=== PATIENT | male | born 1945 | race Caucasian/White ===

== ENCOUNTER 2016-07-29 13:32 | Emergency (ER) | payer MEDICARE ==
[2016-07-29 16:29] LABS: Hematocrit 45 % (42-52); Hemoglobin 15.5 g/dl (14.0-18.0); Mean Corpuscular HGB Conc 35 g/dl (31-36); Mean Corpuscular Hemoglobin 34 pg (27-31); Mean Corpuscular Volume 98 fL (80-94); Mean Platelet Volume 11 um3 (7.4-10.4); Red Blood Count 4.57 10^6/ul (4.0-5.4); Red Cell Distribution Width 12 % (10.5-15); White Blood Count 5.9 10^3/ul (3.5-10.8)
[2016-07-29 16:30] LABS: Comments Flag Yes
[2016-07-29 16:31] LABS: Add Diff/Slide Review? Slide Review Added; Troponin I 0.01 ng/mL (<0.04)
[2016-07-29 16:52] LABS: Albumin 4.1 g/dL (3.2-5.2); BUN/Creatinine Ratio 29.7 (8-20); Calcium 9.8 mg/dL (8.6-10.3); EGFR African American 105.9 (>60); EGFR Non-African American 82.4 (>60); Globulin 3.6 g/dL (2-4); Potassium 4.5 mmol/L (3.5-5.0); Total Bilirubin 1.2 mg/dL (0.2-1.0); Total Protein 7.7 g/dL (6.4-8.9)
[2016-07-29 17:03] LABS: Stomatocytes 2+
[2016-07-29 17:17] VITALS: BP 174/83
--- NOTE | 2016-08-01 14:47 | ED ---
Antonio Dubon Benjamin, scribed for Wilfredo Fagan MD on 07/29/16 at 1548 . Hypertension - HPI Summary HPI Summary: 70yo male with Hx of HTN presents to ED today for high BP readings on the drug store this afternoon. Pt says his systolic pressure was around 250. Pt reports lightheadedness, but denies VAZQUEZ or any other symptoms. - History of Current Complaint Chief Complaint: EDHypertension Stated Complaint: HIGH BP Time Seen by Provider: 07/29/16 15:21 Hx Obtained From: Patient Onset/Duration: Started Hours Ago Timing: Constant Aggravating Factor(s): Nothing Alleviating Factor(s): Nothing Associated Signs & Symptoms: Other: - lightheadedness - Risk Factors Cardiac Risk Factors: Hypertension - Allergies/Home Medications Allergies/Adverse Reactions: Allergies Allergy/AdvReac Type Severity Reaction Status Date / Time Diphenhydramine Allergy Rash Verified 07/29/16 13:50 [From Benadryl] PMH/Surg Hx/FS Hx/Imm Hx Endocrine/Hematology History: Reports: Hx Diabetes - boderline - controlled by diet Cardiovascular History: Reports: Hx Hypertension - Surgical History Surgery Procedure, Year, and Place: Hemerrhoid. Repaired Fx Acetabulum. Shoulder Dislocation, screw. Cataracts. Tendon Transplant RIGHT Thumb Infectious Disease History: No Infectious Disease History: Denies: Traveled Outside the [place] in Last 30 Days - Family History Known Family History: Positive: None Negative: Cardiac Disease, Hypertension, Diabetes - Social History Occupation: Employed Full-time Lives: Alone Alcohol Use: Daily Alcohol Amount: 2-3 Substance Use Type: Reports: None Smoking Status (MU): Never Smoked Tobacco Review of Systems Positive: Other - HTN Eyes: Negative ENT: Negative Cardiovascular: Negative Respiratory: Negative Gastrointestinal: Negative Genitourinary: Negative Musculoskeletal: Negative Skin: Negative Neurological: Other - lightheadedness Psychological: Normal All Other Systems Reviewed And Are Negative: Yes Physical Exam Triage Information Reviewed: Yes Vital Signs On Initial Exam: Initial Vitals Temp Pulse Resp BP Pulse Ox 99.2 F 88 18 208/108 97 07/29/16 13:50 07/29/16 13:50 07/29/16 13:50 07/29/16 13:50 07/29/16 13:50 Vital Signs Reviewed: Yes Appearance: Positive: Well-Appearing, No Pain Distress, Well-Nourished Skin: Positive: Warm, Skin Color Reflects Adequate Perfusion, Dry Head/Face: Positive: Normal Head/Face Inspection Eyes: Positive: EOMI, NAYELI ENT: Positive: Normal ENT inspection Neck: Positive: Supple, Nontender Respiratory/Lung Sounds: Positive: Clear to Auscultation, Breath Sounds Present Cardiovascular: Positive: RRR, Pulses are Symmetrical in both Upper and Lower Extremities Abdomen Description: Positive: Nontender, No Organomegaly Bowel Sounds: Positive: Present Musculoskeletal: Positive: Strength/ROM Intact Neurological: Positive: Sensory/Motor Intact, Alert, Oriented to Person Place, Time, CN Intact II-III Psychiatric: Positive: Normal, Affect/Mood Appropriate - [place] Coma Scale Coma Scale Total: 15 Diagnostics - Vital Signs Vital Signs Temp Pulse Resp BP Pulse Ox 07/29/16 15:30 17 193/91 07/29/16 15:28 10 202/94 07/29/16 14:50 98.2 F 78 18 182/100 95 07/29/16 13:50 99.2 F 88 18 208/108 97 - Laboratory Lab Results: Lab Results 07/29/16 07/29/16 Range/Units 16:00 16:00 WBC 5.9 (3.5-10.8) 10^3/ul RBC 4.57 (4.0-5.4) 10^6/ul Hgb 15.5 (14.0-18.0) g/dl Hct 45 (42-52) % MCV 98 H (80-94) fL MCH 34 H (27-31) pg MCHC 35 (31-36) g/dl RDW 12 (10.5-15) % Plt Count 97 L (150-450) 10^3/ul MPV 11 H (7.4-10.4) um3 Neut % (Auto) 76.1 (38-83) % Lymph % (Auto) 13.7 L (25-47) % [place] % (Auto) 9.5 H (1-9) % Eos % (Auto) 0.2 (0-6) % Baso % (Auto) 0.5 (0-2) % Absolute Neuts (auto) 4.5 (1.5-7.7) 10^3/ul Absolute Lymphs (auto) 0.8 L (1.0-4.8) 10^3/ul Absolute Monos (auto) 0.6 (0-0.8) 10^3/ul Absolute Eos (auto) 0 (0-0.6) 10^3/ul Absolute Basos (auto) 0 (0-0.2) 10^3/ul Absolute Nucleated RBC 0 10^3/ul Nucleated RBC % 0.1 Normal RBC Morphology Not Reportable Stomatocytes 2+ Sodium 132 L (133-145) mmol/L Potassium 4.5 (3.5-5.0) mmol/L Chloride 94 L (101-111) mmol/L Carbon Dioxide 29 (22-32) mmol/L Anion Gap 9 (2-11) mmol/L BUN 27 H (6-24) mg/dL Creatinine 0.91 (0.67-1.17) mg/dL Est GFR ( Amer) 105.9 (>60) Est GFR (Non-Af Amer) 82.4 (>60) BUN/Creatinine Ratio 29.7 H (8-20) Glucose 328 H (70-100) mg/dL Calcium 9.8 (8.6-10.3) mg/dL Total Bilirubin 1.20 H (0.2-1.0) mg/dL AST 49 H (13-39) U/L ALT 47 (7-52) U/L Alkaline Phosphatase 52 (34-104) U/L Troponin I 0.01 (<0.04) ng/mL Total Protein 7.7 (6.4-8.9) g/dL Albumin 4.1 (3.2-5.2) g/dL Globulin 3.6 (2-4) g/dL Albumin/Globulin Ratio 1.1 (1-3) Result Diagrams: 07/29/16 16:00 07/29/16 16:00 Lab Statement: Any lab studies that have been ordered have been reviewed, and results considered in the medical decision making process. - EKG 1358 Cardiac Rate: NL - 87bpm EKG Rhythm: Sinus Rhythm Hypertension Course/Dx - Course Course Of Treatment: Mr. Yuen was observed on the monitor here while we checked for end-organ damage. His W/U was OK and his BP was consistently high and he was very anxious about it so I increaased his atenolol slightly and encouraged him to check his pressures frequently and [facility] - Diagnoses Provider Diagnoses: HTN (hypertension) Discharge - Discharge Plan Condition: Stable Disposition: HOME Patient Education Materials: Hypertension (ED) Referrals: Carla Suarez [Primary Care Provider] - Additional Instructions: Please increase your Atenolol to 50 mgs twice a day from 25 mgs. The documentation as recorded by the Antonio vaughan Benjamin accurately reflects the service I personally performed and the decisions made by me, Wilfredo Fagan MD.
== END 2016-07-29 17:34 | disposition home or self-care (01) ==
LOC: ED 13:32
DX: I10 Essential (primary) hypertension (principal); R42 Dizziness and giddiness
CPT/HCPCS: 36415; 80053; 84484; 85025; 93005; 99282

== ENCOUNTER 2017-03-25 20:51 | Emergency (ER) | payer SELFPAY ==
[2017-03-25 20:57] VITALS: BP 199/95
[2017-03-25] MEDS ORDERED: oxyCODONE/Acetamin 5/325 MG* TAB PO ONE (21:11)
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
== END 2017-03-25 22:32 | disposition home or self-care (01) ==
LOC: ED 20:51
DX: S50.12XA Contusion of left forearm, initial encounter (principal); S00.81XA Abrasion of other part of head, initial encounter; S40.812A Abrasion of left upper arm, initial encounter; S60.512A Abrasion of left hand, initial encounter; S80.212A Abrasion, left knee, initial encounter; S81.011A Laceration without foreign body, right knee, initial encounter; V43.52XA Car driver injured in collision with other type car in traffic accident, initial encounter; Y93.89 Activity, other specified; Y92.410 Unspecified street and highway as the place of occurrence of the external cause; R73.03 Prediabetes; I10 Essential (primary) hypertension
CPT/HCPCS: 99282; A9270-GY

== ENCOUNTER 2022-03-11 10:14 | Inpatient (IN) ==
[2022-03-11 10:51] LABS: PCO2 Arterial 62 mmHg (35-45); PO2 Arterial 66 mmHg (80-100)
[2022-03-11 11:04] LABS: ABS Lymphocytes 0.5 10^3/ul (1.0-4.8); ABS Monocytes 0.7 10^3/ul (0-0.8); Hematocrit 43 % (42-52); Hemoglobin 13.2 g/dL (14.0-18.0); Lymphocyte % 4.1 %; Mean Corpuscular HGB Conc 31 g/dL (31-36); Mean Corpuscular Hemoglobin 35 pg (27-31); Mean Corpuscular Volume 114 fL (80-94); Mean Platelet Volume 9.6 fL (7.4-10.4); Nucleated Red Blood Cells % 0.2; Platelet Count 223 10^3/uL (150-450); Red Blood Count 3.79 10^6 /uL (4.18-5.48); Red Cell Distribution Width 14 % (10-15); White Blood Count 11.1 10^3/uL (3.5-10.8)
[2022-03-11] MEDS ORDERED: Albuterol 2.5mg/3 ml (0.083%) NEB.SOLN INH ONE ×3 (11:09→13:57)
[2022-03-11 11:15] LABS: High Sens Troponin Baseline 15 pg/mL (<20)
[2022-03-11 11:28] LABS: ALT 165 U/L (7-52); Albumin 4.4 g/dL (3.2-5.2); Albumin/Globulin Ratio 1.1 (1-3); Alkaline Phosphatase 94 U/L (35-149); Blood Urea Nitrogen 67 mg/dL (6-24); CO2 Carbon Dioxide 25 mmol/L (22-32); Calcium 9.4 mg/dL (8.6-10.3); Chloride 100 mmol/L (101-111); Globulin 3.9 g/dL (2-4); Glucose 231 mg/dL (70-100); Sodium 137 mmol/L (135-145); Total Protein 8.3 g/dL (6.4-8.9); eGFR CKD-EPI 20.1 (>60)
[2022-03-11 11:33] LABS: Anion Gap 12 mmol/L (2-11)
[2022-03-11] MEDS ORDERED: Furosemide 40 mg/4 ml IV VIAL IV ONE (12:26)
[2022-03-11 12:50] LABS: High Sensitivity Troponin 1 Hr 16 pg/mL (<20)
[2022-03-11 13:55] LABS: PCO2 Arterial 53 mmHg (35-45); PO2 Arterial 72 mmHg (80-100)
[2022-03-11] MEDS ORDERED: Enoxaparin 30 MG/0.3 ML SYR SUBCUT SCH (14:00)
[2022-03-11 15:52] LABS: ABS Lymphocytes 0.4 10^3/ul (1.0-4.8); ABS Monocytes 0.6 10^3/ul (0-0.8); ABS Neutrophils 7.2 10^3/ul (1.5-7.7); Hematocrit 38 % (42-52); Hemoglobin 11.8 g/dL (14.0-18.0); Lymphocyte % 4.9 %; Mean Corpuscular HGB Conc 32 g/dL (31-36); Mean Corpuscular Hemoglobin 36 pg (27-31); Mean Corpuscular Volume 113 fL (80-94); Mean Platelet Volume 9.5 fL (7.4-10.4); Nucleated Red Blood Cells % 0.3; Platelet Count 152 10^3/uL (150-450); Red Cell Distribution Width 13 % (10-15); White Blood Count 8.2 10^3/uL (3.5-10.8)
[2022-03-11 16:26] LABS: Calcium 6.9 mg/dL (8.6-10.3); eGFR CKD-EPI 23.9 (>60)
[2022-03-11 16:32] LABS: Potassium 5.3 mmol/L (3.5-5.0)
[2022-03-11] MEDS ORDERED: Calcium Gluconate 2 GM in NS 0.9% 100 ml BAG 100 ML IV ONE (16:38)
[2022-03-11] MEDS ORDERED: Dextrose 50% Syringe 50 ml 25 GM/50 ML SYRINGE IV PUSH PRN (17:25)
[2022-03-11] MEDS ORDERED: Enoxaparin 80 MG/0.8 ML SYR SUBCUT SCH (19:30)
[2022-03-12 05:13] LABS: ABS Lymphocytes 0.5 10^3/ul (1.0-4.8); ABS Monocytes 0.7 10^3/ul (0-0.8); ABS Neutrophils 5.9 10^3/ul (1.5-7.7); Hematocrit 28 % (42-52); Lymphocyte % 7.4 %; Mean Corpuscular HGB Conc 32 g/dL (31-36); Mean Corpuscular Hemoglobin 36 pg (27-31); Mean Corpuscular Volume 112 fL (80-94); Mean Platelet Volume 9.4 fL (7.4-10.4); Nucleated Red Blood Cells % 0.2; Platelet Count 125 10^3/uL (150-450); Red Blood Count 2.53 10^6 /uL (4.18-5.48); Red Cell Distribution Width 13 % (10-15); White Blood Count 7.1 10^3/uL (3.5-10.8)
[2022-03-12] MEDS ORDERED: Furosemide 40 mg/4 ml IV VIAL IV SLOW PU ONE (05:25)
[2022-03-12 05:45] LABS: Albumin 3.5 g/dL (3.2-5.2); Albumin/Globulin Ratio 1.1 (1-3); Calcium 8.6 mg/dL (8.6-10.3); Globulin 3.1 g/dL (2-4); Magnesium 2.2 mg/dL (1.9-2.7); Phosphorus 5.8 mg/dL (2.5-5.0); Total Protein 6.6 g/dL (6.4-8.9); eGFR CKD-EPI 16.2 (>60)
[2022-03-12 05:49] LABS: Potassium 5.7 mmol/L (3.5-5.0)
[2022-03-12 05:59] LABS: TSH Ultra Thyroid Stim Horm 0.96 mcIU/mL (0.34-5.60)
[2022-03-12] MEDS ORDERED: SODIUM ZIRCONIUM CYCLOSILICATE 10 GM PACKET PO ONE (05:59)
[2022-03-12 07:18] LABS: Urine Appearance Clear; Urine Bilirubin Negative (Negative); Urine Blood Negative (Negative); Urine Color Yellow; Urine Glucose Negative (Negative); Urine Ketones Negative (Negative); Urine Nitrite Negative (Negative); Urine Protein 2+ (100 mg/dL) (Negative); Urine Urobilinogen 0.2 (Negative) (Negative)
[2022-03-12 07:24] LABS: Urine Bacteria Absent (Absent); Urine Red Blood Cell Trace(0-2/hpf) (Absent); Urine Squamous Epithelial Cell Present (Absent); Urine White Blood Cell Trace(0-5/hpf) (Absent)
[2022-03-12 09:24] LABS: PCO2 Arterial 43 mmHg (35-45); PO2 Arterial 82 mmHg (80-100)
[2022-03-12] MEDS: SODIUM ZIRCONIUM CYCLOSILICATE 10 GM PACKET PO SCH ×2 (10:57→22:20)
[2022-03-12 11:24] LABS: Albumin 3.7 g/dL (3.2-5.2); Albumin/Globulin Ratio 1.2 (1-3); Calcium 8.9 mg/dL (8.6-10.3); Globulin 3.2 g/dL (2-4); Total Bilirubin 1.1 mg/dL (0.2-1.0); Total Protein 6.9 g/dL (6.4-8.9); eGFR CKD-EPI 14.9 (>60)
[2022-03-12 11:26] LABS: Potassium 5.2 mmol/L (3.5-5.0)
[2022-03-12 13:10] LABS: Ferritin 35.9 ng/mL (24-336)
[2022-03-12] MEDS: cefTRIAXone 1 gm/50 mL D5W 1 GM/50 ML BAG IV SCH (13:21)
[2022-03-12] MEDS: DOXYcycline 100 MG in NS 0.9% 250 ml 250 ML IVPB SCH ×2 (14:15→18:13)
[2022-03-12] MEDS: SPIRIVA Respimat (tiotropium) 2.5 mcg/inh Inhaler INH SCH (17:58)
[2022-03-12] MEDS ORDERED: NS 0.9% 1000 ml BAG 1,000 ML IV SCH (18:00)
[2022-03-12] MEDS: Pantoprazole VIAL 40 MG VIAL IV SCH (22:20)
[2022-03-13 06:16] LABS: ABS Lymphocytes 0.3 10^3/ul (1.0-4.8); ABS Monocytes 0.3 10^3/ul (0-0.8); ABS Neutrophils 4.9 10^3/ul (1.5-7.7); Hematocrit 34 % (42-52); Hemoglobin 11.1 g/dL (14.0-18.0); Lymphocyte % 5.3 %; Mean Corpuscular HGB Conc 32 g/dL (31-36); Mean Corpuscular Hemoglobin 36 pg (27-31); Mean Corpuscular Volume 112 fL (80-94); Mean Platelet Volume 9.2 fL (7.4-10.4); Nucleated Red Blood Cells % 0.2; Platelet Count 124 10^3/uL (150-450); Red Blood Count 3.05 10^6 /uL (4.18-5.48); Red Cell Distribution Width 13 % (10-15); White Blood Count 5.5 10^3/uL (3.5-10.8)
[2022-03-13] MEDS: DOXYcycline 100 MG in NS 0.9% 250 ml 250 ML IVPB SCH ×2 (06:20→18:07)
[2022-03-13 06:38] LABS: Calcium 8.2 mg/dL (8.6-10.3); Magnesium 2.2 mg/dL (1.9-2.7); Potassium 5.3 mmol/L (3.5-5.0); eGFR CKD-EPI 13.8 (>60)
[2022-03-13] MEDS: Pantoprazole VIAL 40 MG VIAL IV SCH ×2 (08:02→21:46)
[2022-03-13] MEDS: SODIUM ZIRCONIUM CYCLOSILICATE 10 GM PACKET PO SCH (08:02)
[2022-03-13] MEDS: SPIRIVA Respimat (tiotropium) 2.5 mcg/inh Inhaler INH SCH (08:06)
[2022-03-13] MEDS ORDERED: Lactated Ringers 1000 ml BAG 1,000 ML IV ONE (08:51)
[2022-03-13] MEDS ORDERED: Bumetanide IV 0.25 MG/ML 4 ml VIAL (1 mg) SLOW PUSH ONE (10:48)
[2022-03-13] MEDS ORDERED: Bumetanide IV 0.25 MG/ML 4 ml VIAL (1 mg) ONE (11:56)
[2022-03-13 12:54] LABS: Urine Creatinine Concentration 90.49 mg/dL; Urine Potassium Concentration 29.1 mmol/L
[2022-03-13] MEDS: cefTRIAXone 1 gm/50 mL D5W 1 GM/50 ML BAG IV SCH (14:30)
[2022-03-13] MEDS ORDERED: Bumetanide IV 10 MG in Premix IV 0 ML IV SCH (15:00)
[2022-03-13] MEDS ORDERED: Chlorothiazide IV 500 MG in NS 0.9% 50 ML 50 ML IV ONE (15:30)
[2022-03-13 17:23] LABS: ABS Lymphocytes 0.1 10^3/ul (1.0-4.8); ABS Monocytes 0.2 10^3/ul (0-0.8); ABS Neutrophils 6.6 10^3/ul (1.5-7.7); Hematocrit 38 % (42-52); Hemoglobin 11.8 g/dL (14.0-18.0); Mean Corpuscular HGB Conc 31 g/dL (31-36); Mean Corpuscular Hemoglobin 35 pg (27-31); Mean Corpuscular Volume 112 fL (80-94); Mean Platelet Volume 9.5 fL (7.4-10.4); Nucleated Red Blood Cells % 0.1; Platelet Count 146 10^3/uL (150-450); Red Blood Count 3.37 10^6 /uL (4.18-5.48); Red Cell Distribution Width 13 % (10-15)
[2022-03-13 17:44] LABS: Calcium 8.1 mg/dL (8.6-10.3); Potassium 4.3 mmol/L (3.5-5.0); eGFR CKD-EPI 13.7 (>60)
[2022-03-13] MEDS ORDERED: Insulin GLARGINE 100 un/ml 10 ml VIAL SUBCUT SCH (21:00)
[2022-03-13] MEDS: Bumetanide IV 10 MG in Premix IV 0 ML IV SCH (21:38)
[2022-03-14 00:52] LABS: Calcium 7.9 mg/dL (8.6-10.3); Potassium 4.1 mmol/L (3.5-5.0); eGFR CKD-EPI 12.3 (>60)
[2022-03-14 01:21] LABS: Hepatitis B Surface Antigen Nonreactive (Nonreactive)
[2022-03-14 01:26] LABS: Hepatitis B Core IgM Nonreactive (Nonreactive)
[2022-03-14 01:38] LABS: Hepatitis B Surface Ab Not Immune (Immune)
[2022-03-14 01:58] LABS: Hepatitis C Antibody Reactive (Negative)
[2022-03-14 05:28] LABS: ABS Lymphocytes 0.4 10^3/ul (1.0-4.8); ABS Monocytes 0.7 10^3/ul (0-0.8); ABS Neutrophils 5.2 10^3/ul (1.5-7.7); Eosinophil % 0.1 %; Hematocrit 34 % (42-52); Hemoglobin 10.8 g/dL (14.0-18.0); Lymphocyte % 6.4 %; Mean Corpuscular HGB Conc 32 g/dL (31-36); Mean Corpuscular Hemoglobin 36 pg (27-31); Mean Corpuscular Volume 112 fL (80-94); Nucleated Red Blood Cells % 0.2; Platelet Count 120 10^3/uL (150-450); Red Blood Count 3.03 10^6 /uL (4.18-5.48); Red Cell Distribution Width 13 % (10-15); White Blood Count 6.3 10^3/uL (3.5-10.8)
[2022-03-14 06:18] LABS: Calcium 7.9 mg/dL (8.6-10.3); Magnesium 2.2 mg/dL (1.9-2.7); Potassium 4.6 mmol/L (3.5-5.0); eGFR CKD-EPI 11.9 (>60)
[2022-03-14] MEDS: Bumetanide IV 10 MG in Premix IV 0 ML IV SCH ×4 (06:28→19:46)
[2022-03-14] MEDS: DOXYcycline 100 MG in NS 0.9% 250 ml 250 ML IVPB SCH ×2 (06:29→17:16)
[2022-03-14] MEDS: Pantoprazole VIAL 40 MG VIAL IV SCH ×2 (08:03→21:41)
[2022-03-14] MEDS ORDERED: Chlorothiazide IV 500 mg VIAL IV ONE (08:30)
[2022-03-14] MEDS ORDERED: Chlorothiazide IV 500 MG in NS 0.9% 50 ML 50 ML IV ONE (09:00)
[2022-03-14] MEDS ORDERED: cefTRIAXone 1 GM Q24H (ADVAN) IVPB SCH (12:45)
[2022-03-14 13:00] LABS: Calcium 7.9 mg/dL (8.6-10.3); Potassium 4.3 mmol/L (3.5-5.0); eGFR CKD-EPI 12.4 (>60)
[2022-03-14] MEDS: Tiotropium Brom/Olodaterol MDI INH SCH (13:38)
[2022-03-14] MEDS: SPIRIVA Respimat (tiotropium) 2.5 mcg/inh Inhaler INH SCH ×2 (13:40→13:55)
[2022-03-14] MEDS ORDERED: Dextrose 50% Syringe 50 ml 25 GM/50 ML SYRINGE IV PUSH PRN (18:01)
[2022-03-14 18:15] LABS: Calcium 7.8 mg/dL (8.6-10.3); Magnesium 2.1 mg/dL (1.9-2.7); Potassium 4.7 mmol/L (3.5-5.0); eGFR CKD-EPI 12.3 (>60)
[2022-03-14] MEDS ORDERED: Insulin GLARGINE 100 un/ml 10 ml VIAL SUBCUT SCH (21:00)
[2022-03-15 04:34] LABS: ABS Lymphocytes 0.3 10^3/ul (1.0-4.8); ABS Monocytes 0.7 10^3/ul (0-0.8); ABS Neutrophils 5.4 10^3/ul (1.5-7.7); Hematocrit 37 % (42-52); Lymphocyte % 4.5 %; Mean Corpuscular HGB Conc 33 g/dL (31-36); Mean Corpuscular Hemoglobin 36 pg (27-31); Mean Corpuscular Volume 110 fL (80-94); Mean Platelet Volume 9.9 fL (7.4-10.4); Nucleated Red Blood Cells % 0.3; Platelet Count 122 10^3/uL (150-450); Red Blood Count 3.33 10^6 /uL (4.18-5.48); Red Cell Distribution Width 13 % (10-15); White Blood Count 6.3 10^3/uL (3.5-10.8)
[2022-03-15 05:03] LABS: Potassium 4.3 mmol/L (3.5-5.0); eGFR CKD-EPI 13.4 (>60)
[2022-03-15] MEDS: DOXYcycline 100 MG in NS 0.9% 250 ml 250 ML IVPB SCH (05:12)
[2022-03-15] MEDS: Bumetanide IV 10 MG in Premix IV 0 ML IV SCH ×4 (06:35→21:44)
[2022-03-15] MEDS: SPIRIVA Respimat (tiotropium) 2.5 mcg/inh Inhaler INH SCH (07:42)
[2022-03-15] MEDS ORDERED: Bumetanide IV 10 MG in Premix IV 0 ML IV SCH (08:22)
[2022-03-15] MEDS ORDERED: Chlorothiazide IV 500 mg VIAL IV ONE (08:22)
[2022-03-15] MEDS ORDERED: Chlorothiazide IV 500 MG in NS 0.9% 50 ML 50 ML IV ONE (09:00)
[2022-03-15] MEDS: Pantoprazole VIAL 40 MG VIAL IV SCH ×2 (09:32→22:48)
[2022-03-15] MEDS ORDERED: NORMOSOL-R pH 7.4 1000 mL BAG 1,000 ML IV SCH (10:00)
[2022-03-15] MEDS ORDERED: Tiotropium Brom/Olodaterol MDI INH SCH (10:00)
[2022-03-15] MEDS ORDERED: cefTRIAXone 1 gm/50 mL D5W 1 GM/50 ML BAG IV SCH (12:45)
[2022-03-15 13:33] LABS: Calcium 7.8 mg/dL (8.6-10.3); Magnesium 1.9 mg/dL (1.9-2.7); Potassium 4.1 mmol/L (3.5-5.0); eGFR CKD-EPI 15.1 (>60)
[2022-03-15] MEDS ORDERED: Calcium Gluconate 2 GM in NS 0.9% 100 ml BAG 100 ML IV ONE (13:36)
[2022-03-15] MEDS ORDERED: Magnesium Sulfate 2 gm BAG 2 GM/50 ML BAG IVPB ONE (13:36)
[2022-03-15 19:14] LABS: Calcium 9.8 mg/dL (8.6-10.3); Magnesium 2.4 mg/dL (1.9-2.7); Potassium 4.2 mmol/L (3.5-5.0); eGFR CKD-EPI 16.2 (>60)
[2022-03-15] MEDS ORDERED: Insulin GLARGINE 100 un/ml 10 ml VIAL SUBCUT SCH (21:00)
[2022-03-15 22:34] LABS: Glucose Confirmatory 449 mg/dL (70-100)
[2022-03-16] MEDS: Bumetanide IV 10 MG in Premix IV 0 ML IV SCH ×4 (03:10→21:27)
[2022-03-16 04:35] LABS: ABS Lymphocytes 0.2 10^3/ul (1.0-4.8); ABS Monocytes 0.6 10^3/ul (0-0.8); Hematocrit 39 % (42-52); Hemoglobin 12.9 g/dL (14.0-18.0); Lymphocyte % 4.9 %; Mean Corpuscular HGB Conc 33 g/dL (31-36); Mean Corpuscular Hemoglobin 36 pg (27-31); Mean Corpuscular Volume 108 fL (80-94); Mean Platelet Volume 9.1 fL (7.4-10.4); Nucleated Red Blood Cells % 0.2; Platelet Count 97 10^3/uL (150-450); Red Blood Count 3.59 10^6 /uL (4.18-5.48); Red Cell Distribution Width 13 % (10-15); White Blood Count 4.9 10^3/uL (3.5-10.8)
[2022-03-16 05:04] LABS: Calcium 8.3 mg/dL (8.6-10.3); Magnesium 2.2 mg/dL (1.9-2.7); Phosphorus 5.9 mg/dL (2.5-5.0); Potassium 3.6 mmol/L (3.5-5.0); eGFR CKD-EPI 18.7 (>60)
[2022-03-16] MEDS ORDERED: Potassium Chloride LIQUID 20 MEQ/15 ML LIQUID PO ONE (07:30)
[2022-03-16] MEDS: Pantoprazole VIAL 40 MG VIAL IV SCH ×2 (08:00→21:50)
[2022-03-16] MEDS: KCL 10 MEQ/50 ML IVPREMIX 10 MEQ/50 ML BAG IV SCH ×4 (08:00→11:10)
[2022-03-16] MEDS: SPIRIVA Respimat (tiotropium) 2.5 mcg/inh Inhaler INH SCH (08:02)
[2022-03-16] MEDS ORDERED: Benzocaine/Menthol LOZ PO PRN (11:22)
[2022-03-16] MEDS ORDERED: Benzocaine/Menthol LOZ ONE (11:29)
[2022-03-16] MEDS: Enoxaparin 100 MG/ML SYR SUBCUT SCH (12:45)
[2022-03-16 16:51] LABS: Calcium 8.2 mg/dL (8.6-10.3); eGFR CKD-EPI 22.3 (>60)
[2022-03-16 16:53] LABS: Potassium 4.5 mmol/L (3.5-5.0)
[2022-03-16] MEDS: Insulin GLARGINE 100 un/ml 10 ml VIAL SUBCUT SCH (21:50)
[2022-03-17] MEDS: Bumetanide IV 10 MG in Premix IV 0 ML IV SCH (08:06)
[2022-03-17] MEDS: Pantoprazole VIAL 40 MG VIAL IV SCH ×2 (08:11→20:42)
[2022-03-17 08:15] LABS: ABS Lymphocytes 0.9 10^3/ul (1.0-4.8); ABS Monocytes 1.1 10^3/ul (0-0.8); ABS Neutrophils 5.3 10^3/ul (1.5-7.7); Eosinophil % 0.6 %; Hematocrit 41 % (42-52); Hemoglobin 13.4 g/dL (14.0-18.0); Lymphocyte % 12.1 %; Mean Corpuscular HGB Conc 33 g/dL (31-36); Mean Corpuscular Hemoglobin 35 pg (27-31); Mean Corpuscular Volume 108 fL (80-94); Mean Platelet Volume 9.8 fL (7.4-10.4); Nucleated Red Blood Cells % 0.1; Platelet Count 128 10^3/uL (150-450); Red Blood Count 3.84 10^6 /uL (4.18-5.48); Red Cell Distribution Width 13 % (10-15); White Blood Count 7.3 10^3/uL (3.5-10.8)
[2022-03-17 08:36] LABS: Calcium 9.3 mg/dL (8.6-10.3); Potassium 3.6 mmol/L (3.5-5.0); eGFR CKD-EPI 26.2 (>60)
[2022-03-17] MEDS: Tiotropium Brom/Olodaterol MDI INH SCH (08:49)
[2022-03-17] MEDS: SPIRIVA Respimat (tiotropium) 2.5 mcg/inh Inhaler INH SCH (08:55)
[2022-03-17 10:54] LABS: Albumin 4.2 g/dL (3.2-5.2); Albumin/Globulin Ratio 1.2 (1-3); Globulin 3.5 g/dL (2-4); Total Bilirubin 1.5 mg/dL (0.2-1.0); Total Protein 7.7 g/dL (6.4-8.9)
[2022-03-17] MEDS: Enoxaparin 100 MG/ML SYR SUBCUT SCH (12:32)
[2022-03-17] MEDS: Insulin GLARGINE 100 un/ml 10 ml VIAL SUBCUT SCH (20:42)
[2022-03-18 07:37] LABS: Albumin 3.9 g/dL (3.2-5.2); Albumin/Globulin Ratio 1.1 (1-3); Calcium 9.3 mg/dL (8.6-10.3); Globulin 3.5 g/dL (2-4); Magnesium 1.6 mg/dL (1.9-2.7); Potassium 2.9 mmol/L (3.5-5.0); Total Bilirubin 1.7 mg/dL (0.2-1.0); Total Protein 7.4 g/dL (6.4-8.9); eGFR CKD-EPI 34.6 (>60)
[2022-03-18] MEDS: SPIRIVA Respimat (tiotropium) 2.5 mcg/inh Inhaler INH SCH (07:48)
[2022-03-18] MEDS ORDERED: Potassium Chlor 20 meq TAB.ER PO ONE ×3 (08:14→16:43)
[2022-03-18] MEDS: Pantoprazole VIAL 40 MG VIAL IV SCH ×2 (08:55→20:55)
[2022-03-18] MEDS ORDERED: KCL 20 MEQ/100 ML IVPREMIX 20 MEQ/100 ML BAG IV SCH (09:00)
[2022-03-18] MEDS: Enoxaparin 80 MG/0.8 ML SYR SUBCUT SCH (12:52)
[2022-03-18 13:45] LABS: Calcium 8.9 mg/dL (8.6-10.3); Potassium 3.4 mmol/L (3.5-5.0); eGFR CKD-EPI 33.4 (>60)
[2022-03-18] MEDS ORDERED: Magnesium Sulf 4 GM/100 ML IV 4,000 MG/100 ML BAG IVPB ONE (14:43)
[2022-03-18] MEDS: Insulin GLARGINE 100 un/ml 10 ml VIAL SUBCUT SCH (20:59)
[2022-03-19 06:10] LABS: ABS Eosinophils 0.1 10^3/ul (0-0.6); ABS Lymphocytes 0.8 10^3/ul (1.0-4.8); ABS Monocytes 1.6 10^3/ul (0-0.8); ABS Neutrophils 8.1 10^3/ul (1.5-7.7); Eosinophil % 0.6 %; Hematocrit 42 % (42-52); Hemoglobin 14.1 g/dL (14.0-18.0); Lymphocyte % 7.6 %; Mean Corpuscular HGB Conc 34 g/dL (31-36); Mean Corpuscular Hemoglobin 36 pg (27-31); Mean Corpuscular Volume 107 fL (80-94); Mean Platelet Volume 10.3 fL (7.4-10.4); Platelet Count 128 10^3/uL (150-450); Red Blood Count 3.91 10^6 /uL (4.18-5.48); Red Cell Distribution Width 13 % (10-15); White Blood Count 10.6 10^3/uL (3.5-10.8)
[2022-03-19 06:46] LABS: Albumin 3.7 g/dL (3.2-5.2); Albumin/Globulin Ratio 1.2 (1-3); Calcium 9.1 mg/dL (8.6-10.3); Magnesium 2.5 mg/dL (1.9-2.7); Total Bilirubin 2.2 mg/dL (0.2-1.0); Total Protein 6.7 g/dL (6.4-8.9); eGFR CKD-EPI 41.9 (>60)
[2022-03-19] MEDS: SPIRIVA Respimat (tiotropium) 2.5 mcg/inh Inhaler INH SCH (08:08)
[2022-03-19] MEDS: Pantoprazole VIAL 40 MG VIAL IV SCH ×2 (08:39→21:44)
[2022-03-19] MEDS: Enoxaparin 80 MG/0.8 ML SYR SUBCUT SCH (12:31)
[2022-03-19] MEDS ORDERED: Insulin GLARGINE 100 un/ml 10 ml VIAL SUBCUT SCH ×3 (21:00)
[2022-03-20 06:47] LABS: ABS Eosinophils 0.1 10^3/ul (0-0.6); ABS Lymphocytes 0.8 10^3/ul (1.0-4.8); ABS Monocytes 1.2 10^3/ul (0-0.8); ABS Neutrophils 5.6 10^3/ul (1.5-7.7); Hematocrit 37 % (42-52); Hemoglobin 12.3 g/dL (14.0-18.0); Mean Corpuscular HGB Conc 33 g/dL (31-36); Mean Corpuscular Hemoglobin 35 pg (27-31); Mean Corpuscular Volume 107 fL (80-94); Mean Platelet Volume 10.7 fL (7.4-10.4); Platelet Count 95 10^3/uL (150-450); Red Blood Count 3.47 10^6 /uL (4.18-5.48); Red Cell Distribution Width 12 % (10-15); White Blood Count 7.7 10^3/uL (3.5-10.8)
[2022-03-20 07:17] LABS: Calcium 8.6 mg/dL (8.6-10.3); Magnesium 2.1 mg/dL (1.9-2.7); Potassium 3.7 mmol/L (3.5-5.0); eGFR CKD-EPI 43.1 (>60)
[2022-03-20] MEDS: SPIRIVA Respimat (tiotropium) 2.5 mcg/inh Inhaler INH SCH (07:27)
[2022-03-20] MEDS: Pantoprazole VIAL 40 MG VIAL IV SCH (08:56)
[2022-03-20] MEDS: Enoxaparin 80 MG/0.8 ML SYR SUBCUT SCH (11:59)
[2022-03-20 12:41] VITALS: BP 124/71
== END 2022-03-20 17:00 | disposition home or self-care (01) | DRG 291 ==
LOC: ED 10:14 → EDHOLD 13:48 → SUATTDRO 13:48 → EDHOLD 18:55 → ICU 19:00 → MEDTELE 03-17 05:29
PROVIDERS: ADMIT Internal Medicine; ATTEND Student in an Organized Health Care Education/Training Program

== ENCOUNTER 2022-07-05 17:15 | Inpatient (IN) ==
[2022-07-05 18:20] LABS: INR 1.32 (0.88-1.18)
[2022-07-05 18:26] LABS: ABS Lymphocytes 0.8 10^3/ul (1.0-4.8); ABS Monocytes 0.8 10^3/ul (0-0.8); ABS Neutrophils 4.7 10^3/ul (1.5-7.7); Eosinophil % 0.5 %; Hematocrit 40 % (42-52); Lymphocyte % 12.3 %; Mean Corpuscular HGB Conc 33 g/dL (31-36); Mean Corpuscular Hemoglobin 35 pg (27-31); Mean Corpuscular Volume 106 fL (80-94); Mean Platelet Volume 8.8 fL (7.4-10.4); Nucleated Red Blood Cells % 0.1; Platelet Count 202 10^3/uL (150-450); Red Blood Count 3.75 10^6 /uL (4.18-5.48); Red Cell Distribution Width 13 % (10-15); White Blood Count 6.4 10^3/uL (3.5-10.8)
[2022-07-05 18:43] LABS: Albumin/Globulin Ratio 1.1 (1-3); Calcium 9.2 mg/dL (8.6-10.3); Creatinine, Serum 1.88 mg/dL (0.67-1.17); Globulin 3.7 g/dL (2-4); Potassium 4.4 mmol/L (3.5-5.0); Total Bilirubin 1.2 mg/dL (0.2-1.0); Total Protein 7.7 g/dL (6.4-8.9); eGFR CKD-EPI 36.6 (>60)
[2022-07-05 19:32] LABS: High Sensitivity Troponin 1 Hr 48 pg/mL (<20)
[2022-07-05] MEDS ORDERED: Furosemide 20 mg/2 ml IV VIAL IV ONE (19:43)
[2022-07-05 19:48] LABS: C Reactive Protein 59.75 mg/L (<8.01); Magnesium 1.8 mg/dL (1.9-2.7)
[2022-07-05] MEDS ORDERED: Iodixanol (CONTRAST) 320 MG/ML 100 ML SDV IV ONE (19:49)
[2022-07-05] MEDS ORDERED: Enoxaparin 40 MG/0.4 ML SYR SUBCUT SCH ×4 (22:00→23:45)
[2022-07-05 22:10] LABS: Ferritin 26.8 ng/mL (24-336)
[2022-07-05] MEDS ORDERED: Azithromycin 500 mg/250 mL NS IVPB ONE (23:00)
[2022-07-06] MEDS ORDERED: Dextrose 50% Syringe 50 ml 25 GM/50 ML SYRINGE IV PUSH PRN (00:02)
[2022-07-06 00:12] LABS: Folate 15.75 ng/mL (5.90-24.80)
[2022-07-06] MEDS ORDERED: cefTRIAXone 1 gm/50 mL D5W 1 GM/50 ML BAG IV ONE (00:15)
[2022-07-06 00:33] LABS: Hepatitis B Surface Antigen Nonreactive (Nonreactive)
[2022-07-06 00:38] LABS: Hepatitis A Ab IgM Negative (Negative); Hepatitis B Core IgM Nonreactive (Nonreactive)
[2022-07-06 00:50] LABS: Hepatitis B Surface Ab Not Immune (Immune)
[2022-07-06] MEDS ORDERED: Enoxaparin 40 MG/0.4 ML SYR ONE (00:51)
[2022-07-06] MEDS ORDERED: Midazolam 2 mg/2 ml VIAL 1 mg/ml 2 ml VIAL (2 mg) ONE (00:55)
[2022-07-06] MEDS: Thiamine 100 MG/ML 2 ml VIAL 100 MG in NS 0.9% 50 ML 50 ML IV SCH ×2 (01:03→20:43)
[2022-07-06 02:53] LABS: Hepatitis C Antibody Reactive (Negative)
[2022-07-06] MEDS: Furosemide 40 mg/4 ml IV VIAL IV SLOW PU SCH ×2 (06:00→12:50)
[2022-07-06 06:04] LABS: ABS Lymphocytes 0.6 10^3/ul (1.0-4.8); ABS Monocytes 0.6 10^3/ul (0-0.8); ABS Neutrophils 4.2 10^3/ul (1.5-7.7); Eosinophil % 0.5 %; Hematocrit 36 % (42-52); Lymphocyte % 10.9 %; Mean Corpuscular HGB Conc 33 g/dL (31-36); Mean Corpuscular Hemoglobin 34 pg (27-31); Mean Corpuscular Volume 105 fL (80-94); Mean Platelet Volume 8.8 fL (7.4-10.4); Nucleated Red Blood Cells % 0.1; Platelet Count 160 10^3/uL (150-450); Red Blood Count 3.47 10^6 /uL (4.18-5.48); Red Cell Distribution Width 13 % (10-15); White Blood Count 5.5 10^3/uL (3.5-10.8)
[2022-07-06 06:33] LABS: INR 1.32 (0.88-1.18)
[2022-07-06 06:45] LABS: Albumin 3.7 g/dL (3.2-5.2); Albumin/Globulin Ratio 1.2 (1-3); Calcium 8.6 mg/dL (8.6-10.3); Creatinine, Serum 1.76 mg/dL (0.67-1.17); Globulin 3.2 g/dL (2-4); Potassium 4.3 mmol/L (3.5-5.0); Total Bilirubin 0.8 mg/dL (0.2-1.0); Total Protein 6.9 g/dL (6.4-8.9); eGFR CKD-EPI 39.6 (>60)
[2022-07-06] MEDS ORDERED: NF: DAPAGLIFLOZIN 10 MG TAB (NF) PO SCH (09:00)
[2022-07-06] MEDS: Ferric Gluconate IV 250 MG in NS 0.9% 250 ml 200 ML IVPB SCH (10:55)
[2022-07-06] MEDS: Levalbuterol 0.63MG/3ML NEB UNIT OF USE INH SCH (20:26)
[2022-07-06] MEDS: Azithromycin 500 mg/250 ml NS 500 MG/250 ML BAG IVPB SCH (21:47)
[2022-07-06] MEDS: Enoxaparin 40 MG/0.4 ML SYR SUBCUT SCH (22:49)
[2022-07-07] MEDS: Furosemide 40 mg/4 ml IV VIAL IV SLOW PU SCH ×2 (05:24→12:03)
[2022-07-07] MEDS: Levalbuterol 0.63MG/3ML NEB UNIT OF USE INH SCH ×3 (06:29→20:00)
[2022-07-07 07:24] LABS: ABS Eosinophils 0.1 10^3/ul (0-0.6); ABS Lymphocytes 0.4 10^3/ul (1.0-4.8); ABS Monocytes 0.6 10^3/ul (0-0.8); ABS Neutrophils 3.3 10^3/ul (1.5-7.7); Eosinophil % 1.6 %; Hematocrit 35 % (42-52); Hemoglobin 11.6 g/dL (14.0-18.0); Lymphocyte % 9.6 %; Mean Corpuscular HGB Conc 33 g/dL (31-36); Mean Corpuscular Hemoglobin 35 pg (27-31); Mean Corpuscular Volume 106 fL (80-94); Mean Platelet Volume 8.8 fL (7.4-10.4); Nucleated Red Blood Cells % 0.1; Platelet Count 145 10^3/uL (150-450); Red Blood Count 3.31 10^6 /uL (4.18-5.48); Red Cell Distribution Width 13 % (10-15); White Blood Count 4.4 10^3/uL (3.5-10.8)
[2022-07-07 07:45] LABS: Albumin 3.6 g/dL (3.2-5.2); Albumin/Globulin Ratio 1.1 (1-3); Calcium 8.8 mg/dL (8.6-10.3); Creatinine, Serum 1.7 mg/dL (0.67-1.17); Globulin 3.3 g/dL (2-4); Potassium 3.9 mmol/L (3.5-5.0); Total Bilirubin 0.7 mg/dL (0.2-1.0); Total Protein 6.9 g/dL (6.4-8.9); eGFR CKD-EPI 41.3 (>60)
[2022-07-07] MEDS: Ferric Gluconate IV 250 MG in NS 0.9% 250 ml 200 ML IVPB SCH (09:36)
[2022-07-07 15:15] LABS: TSH Ultra Thyroid Stim Horm 0.84 mcIU/mL (0.34-5.60)
[2022-07-07] MEDS ORDERED: cefTRIAXone 1 gm/50 mL D5W 1 GM/50 ML BAG IV SCH (21:00)
[2022-07-07] MEDS: Azithromycin 500 mg/250 ml NS 500 MG/250 ML BAG IVPB SCH (22:06)
[2022-07-07] MEDS: Enoxaparin 40 MG/0.4 ML SYR SUBCUT SCH (23:23)
[2022-07-07] MEDS: Thiamine 100 MG/ML 2 ml VIAL 100 MG in NS 0.9% 50 ML 50 ML IV SCH (23:25)
[2022-07-08] MEDS: Furosemide 40 mg/4 ml IV VIAL IV SLOW PU SCH ×2 (05:53→12:00)
[2022-07-08 06:34] LABS: ABS Lymphocytes 0.5 10^3/ul (1.0-4.8); ABS Monocytes 0.7 10^3/ul (0-0.8); Eosinophil % 0.4 %; Hematocrit 37 % (42-52); Hemoglobin 11.9 g/dL (14.0-18.0); Lymphocyte % 8.4 %; Mean Corpuscular HGB Conc 32 g/dL (31-36); Mean Corpuscular Hemoglobin 34 pg (27-31); Mean Corpuscular Volume 106 fL (80-94); Nucleated Red Blood Cells % 0.1; Platelet Count 184 10^3/uL (150-450); Red Cell Distribution Width 13 % (10-15); White Blood Count 6.3 10^3/uL (3.5-10.8)
[2022-07-08 07:05] LABS: Albumin/Globulin Ratio 1.2 (1-3); Calcium 9.2 mg/dL (8.6-10.3); Creatinine, Serum 1.72 mg/dL (0.67-1.17); Globulin 3.3 g/dL (2-4); Potassium 4.2 mmol/L (3.5-5.0); Total Bilirubin 0.7 mg/dL (0.2-1.0); Total Protein 7.3 g/dL (6.4-8.9); eGFR CKD-EPI 40.7 (>60)
[2022-07-08] MEDS: Levalbuterol HFA INHALER MDI INH PRN (07:06)
[2022-07-08] MEDS: Levalbuterol 0.63MG/3ML NEB UNIT OF USE INH SCH ×2 (07:09→19:50)
[2022-07-08] MEDS: Ferric Gluconate IV 250 MG in NS 0.9% 250 ml 200 ML IVPB SCH (09:40)
[2022-07-08 15:53] LABS: Urine Appearance Clear; Urine Bilirubin Negative (Negative); Urine Blood 1+ (Negative); Urine Color Yellow; Urine Glucose 3+(>=500 mg/dL) (Negative); Urine Ketones Negative (Negative); Urine Nitrite Negative (Negative); Urine Protein Negative (Negative); Urine Urobilinogen Negative (Negative)
[2022-07-08 15:55] LABS: Urine Bacteria Absent (Absent); Urine Red Blood Cell Trace(0-2/hpf) (Absent); Urine Squamous Epithelial Cell Present (Absent); Urine White Blood Cell Absent (Absent)
[2022-07-08 16:50] LABS: Body Fluid Appearance Clear; Body Fluid Color Yellow; Body Fluid Source Pleural Fluid
[2022-07-08 17:36] LABS: Body Fluid WBC 444 /mcL
[2022-07-08 18:53] LABS: Body Fluid Mono 43 %; Body Fluid Other Cells 31; Body Fluid Total Cells Counted 200
[2022-07-08] MEDS: cefTRIAXone 1 gm/50 mL D5W 1 GM/50 ML BAG IV SCH (20:52)
[2022-07-08] MEDS ORDERED: cefTRIAXone 1 GM Q24H (ADVAN) IVPB SCH (21:00)
[2022-07-08] MEDS ORDERED: Insulin GLARGINE 100 un/ml 10 ml VIAL SUBCUT SCH (21:00)
[2022-07-08] MEDS: Thiamine 100 MG/ML 2 ml VIAL 100 MG in NS 0.9% 50 ML 50 ML IV SCH (21:40)
[2022-07-08] MEDS: Enoxaparin 40 MG/0.4 ML SYR SUBCUT SCH (22:56)
[2022-07-09 06:30] LABS: ABS Eosinophils 0.1 10^3/ul (0-0.6); ABS Lymphocytes 0.7 10^3/ul (1.0-4.8); ABS Monocytes 0.7 10^3/ul (0-0.8); ABS Neutrophils 4.2 10^3/ul (1.5-7.7); Eosinophil % 1.5 %; Hematocrit 33 % (42-52); Lymphocyte % 12.1 %; Mean Corpuscular HGB Conc 33 g/dL (31-36); Mean Corpuscular Hemoglobin 35 pg (27-31); Mean Corpuscular Volume 104 fL (80-94); Platelet Count 160 10^3/uL (150-450); Red Blood Count 3.18 10^6 /uL (4.18-5.48); Red Cell Distribution Width 13 % (10-15); White Blood Count 5.7 10^3/uL (3.5-10.8)
[2022-07-09 06:57] LABS: Albumin 3.4 g/dL (3.2-5.2); Calcium 8.9 mg/dL (8.6-10.3); Creatinine, Serum 1.66 mg/dL (0.67-1.17); Potassium 3.7 mmol/L (3.5-5.0); eGFR CKD-EPI 42.5 (>60)
[2022-07-09] MEDS: Levalbuterol HFA INHALER MDI INH PRN ×2 (07:01→18:08)
[2022-07-09] MEDS: Levalbuterol 0.63MG/3ML NEB UNIT OF USE INH SCH ×2 (07:02→18:24)
[2022-07-09] MEDS: Ferric Gluconate IV 250 MG in NS 0.9% 250 ml 200 ML IVPB SCH (09:22)
[2022-07-09] MEDS: Thiamine 100 MG/ML 2 ml VIAL 100 MG in NS 0.9% 50 ML 50 ML IV SCH (20:30)
[2022-07-09] MEDS ORDERED: Insulin GLARGINE 100 un/ml 10 ml VIAL SUBCUT SCH (21:00)
[2022-07-09] MEDS: cefTRIAXone 1 gm/50 mL D5W 1 GM/50 ML BAG IV SCH (21:23)
[2022-07-09] MEDS: Enoxaparin 40 MG/0.4 ML SYR SUBCUT SCH (22:16)
[2022-07-10 07:17] LABS: Calcium 9.2 mg/dL (8.6-10.3); Creatinine, Serum 1.49 mg/dL (0.67-1.17); Potassium 3.9 mmol/L (3.5-5.0); eGFR CKD-EPI 48.3 (>60)
[2022-07-10] MEDS: Levalbuterol 0.63MG/3ML NEB UNIT OF USE INH SCH (07:19)
[2022-07-10 10:30] VITALS: BP 131/76
[2022-07-11 09:49] LABS: Lactate Dehydrogenase, BF 73 U/L
[2022-07-11 09:50] LABS: Albumin, BF 1.8 g/dL; Fluid Type, Albumin PLEURAL; Fluid Type: PLEURAL; Glucose, BF 231 mg/dL
[2022-07-11 09:52] LABS: Fluid Type, Protein, Total PLEURAL; Total Protein, BF 3.2 g/dL
== END 2022-07-10 11:40 | disposition home or self-care (01) | DRG 189 ==
LOC: ED 17:15 → EDHOLD 21:15 → SUATTDRO 21:15 → MEDTELE 07-06 13:59
PROVIDERS: ADMIT Hospitalist; ATTEND Internal Medicine

== ENCOUNTER 2023-12-25 15:05 | Inpatient (IN) ==
[2023-12-25] MEDS: Octreotide Acetate 50 MCG in NS 0.9% 50 ML 50 ML IV ONE (16:20)
[2023-12-25 16:26] LABS: ABS Lymphocytes 0.8 10^3/uL (1.0-4.8); ABS Neutrophils 4.3 10^3/uL (1.5-7.6); Eosinophil % 0.4 %; Hematocrit 28.7 % (38-53); Hemoglobin 8.9 g/dL (13.2-16.3); Lymphocyte % 13.4 %; Mean Corpuscular Hemoglobin 26.7 pg (27-33); Mean Corpuscular Hgb Conc 30.9 g/dL (31-36); Mean Corpuscular Volume 86.2 fL (80-97); Mean Platelet Volume 9.1 fL (7.5-11.2); Nucleated Red Blood Cells % 0.1 %/100WBC (0.0-0.8); Platelet Count 208 10^3/uL (150-450); Red Blood Count 3.33 10^6/uL (4.06-5.63); Red Cell Distribution Width 17.8 % (12-17); White Blood Count 6.1 10^3/uL (3.6-10.2)
[2023-12-25] MEDS: Pantoprazole 80 mg in NS BAG 80 MG/250 ML BAG IV ONE (16:41)
[2023-12-25 16:42] LABS: Activated Partial Thrombo Time 30.5 seconds (26.0-38.0); INR 1.71 (0.85-1.14)
[2023-12-25 17:15] LABS: ALT 13 U/L (7-52); AST 18 U/L (13-39); Albumin 3.8 g/dL (3.2-5.2); Albumin/Globulin Ratio 1.1 (1-3); Alkaline Phosphatase 58 U/L (35-149); Anion Gap 14 mmol/L (2-16); Blood Urea Nitrogen 86 mg/dL (6-24); CO2 Carbon Dioxide 29 mmol/L (22-32); Calcium 9.1 mg/dL (8.6-10.3); Chloride 93 mmol/L (101-111); Creatinine, Serum 1.67 mg/dL (0.67-1.17); Globulin 3.5 g/dL (2-4); Glucose 283 mg/dL (70-100); Potassium 4.5 mmol/L (3.5-5.0); Sodium 136 mmol/L (135-145); Total Bilirubin 1.2 mg/dL (0.2-1.0); Total Protein 7.3 g/dL (6.4-8.9); eGFR CKD-EPI 41.6 (>60)
[2023-12-25 17:55] LABS: Lipase 36 U/L (11.0-82.0)
[2023-12-25] MEDS: Iodixanol (CONTRAST) 320 MG/ML 100 ML SDV IV ONE (18:09)
[2023-12-25] MEDS: Octreotide Acetate 500 MCG in NS 0.9% 100 ml BAG 100 ML IV SCH (18:42)
[2023-12-25] MEDS: Lactated Ringers 1000 ml BAG 1,000 ML IV ONE (21:06)
[2023-12-25] MEDS ORDERED: Insulin GLARGINE 100 un/ml 10 ml VIAL SUBCUT SCH (23:00)
[2023-12-25 23:18] LABS: % Iron Saturation 19 % (15-55); .Transferrin 341 mg/dL (203-362); Iron 91 ug/dL (50-212); Total Iron Binding Capacity 477 mcg/dL (250-450); Unsaturated Iron Binding 386 ug/dL
[2023-12-25 23:40] LABS: Ferritin 23.2 ng/mL (24-336)
[2023-12-25 23:43] LABS: Folate > 20.00 ng/mL (5.90-24.80)
[2023-12-25 23:45] LABS: Vitamin B12 451 pg/mL (180-914)
[2023-12-26] MEDS: Insulin GLARGINE 100 un/ml 10 ml VIAL SUBCUT SCH ×2 (00:24→23:29)
[2023-12-26] MEDS ORDERED: Dextrose 50% Syringe 50 ml 25 GM/50 ML SYRINGE IV PUSH PRN (00:42)
[2023-12-26 00:46] LABS: ABS Lymphocytes 0.8 10^3/uL (1.0-4.8); ABS Monocytes 0.7 10^3/uL (0.0-1.1); Hematocrit 21.8 % (38-53); Hemoglobin 6.9 g/dL (13.2-16.3); Lymphocyte % 16.5 %; Mean Corpuscular Hemoglobin 27.2 pg (27-33); Mean Corpuscular Hgb Conc 31.5 g/dL (31-36); Mean Corpuscular Volume 86.4 fL (80-97); Mean Platelet Volume 8.8 fL (7.5-11.2); Platelet Count 164 10^3/uL (150-450); Red Blood Count 2.52 10^6/uL (4.06-5.63); Red Cell Distribution Width 18.9 % (12-17); White Blood Count 4.6 10^3/uL (3.6-10.2)
[2023-12-26] MEDS: Lactated Ringers 1000 ml BAG 500 ML IV ONE (01:31)
[2023-12-26] MEDS ORDERED: cefTRIAXone 1 gm/50 mL D5W 1 GM/50 ML BAG IV SCH (02:00)
[2023-12-26] MEDS: Iron Sucrose 200 MG in NS 0.9% 100 ml BAG 100 ML IVPB ONE (02:07)
[2023-12-26] MEDS: Pantoprazole 80 mg in NS BAG 80 MG/250 ML BAG IV SCH (02:51)
[2023-12-26] MEDS: Octreotide Acetate 500 MCG in NS 0.9% 100 ml BAG 100 ML IV SCH (04:53)
[2023-12-26 07:38] LABS: ABS Eosinophils 0.1 10^3/uL (0.0-0.5); ABS Lymphocytes 0.6 10^3/uL (1.0-4.8); ABS Monocytes 0.6 10^3/uL (0.0-1.1); ABS Neutrophils 2.7 10^3/uL (1.5-7.6); Eosinophil % 2.4 %; Hematocrit 22.2 % (38-53); Hemoglobin 7.2 g/dL (13.2-16.3); Lymphocyte % 14.5 %; Mean Corpuscular Hemoglobin 28.2 pg (27-33); Mean Corpuscular Hgb Conc 32.6 g/dL (31-36); Mean Corpuscular Volume 86.5 fL (80-97); Mean Platelet Volume 8.4 fL (7.5-11.2); Nucleated Red Blood Cells % 0.1 %/100WBC (0.0-0.8); Platelet Count 136 10^3/uL (150-450); Red Blood Count 2.56 10^6/uL (4.06-5.63); Red Cell Distribution Width 17.5 % (12-17)
[2023-12-26 07:50] LABS: INR 1.46 (0.85-1.14)
[2023-12-26] MEDS: cefTRIAXone 1 gm/50 mL D5W 1 GM/50 ML BAG IV SCH (08:13)
[2023-12-26 08:15] LABS: Albumin 3.1 g/dL (3.2-5.2); Albumin/Globulin Ratio 1.2 (1-3); Calcium 7.8 mg/dL (8.6-10.3); Creatinine, Serum 1.5 mg/dL (0.67-1.17); Globulin 2.6 g/dL (2-4); Potassium 3.5 mmol/L (3.5-5.0); Total Bilirubin 1.8 mg/dL (0.2-1.0); Total Protein 5.7 g/dL (6.4-8.9); eGFR CKD-EPI 47.4 (>60)
[2023-12-26] MEDS ORDERED: Ondansetron 4 mg VIAL 2 MG/ML 2 ml VIAL IV PRN (11:04)
[2023-12-26] MEDS ORDERED: Naloxone 0.4 mg VIAL 0.4 mg/ml 1 ml VIAL IV PRN (11:04)
[2023-12-26] MEDS ORDERED: Lidocaine 2% PF 5 ML VIAL ONE (11:38)
[2023-12-26] MEDS ORDERED: NS 0.45% 1000 ml BAG 1,000 ML IV SCH (12:00)
[2023-12-26] MEDS ORDERED: Phenylephrine 40 mcg/mL 10mL (400mcg) SYRINGE ONE (12:09)
[2023-12-26] MEDS ORDERED: Dexamethasone IV 4 MG/ML VIAL 1 ml VIAL ONE (12:11)
[2023-12-26] MEDS ORDERED: Ondansetron 4 mg VIAL 2 MG/ML 2 ml VIAL ONE (12:11)
[2023-12-26] MEDS ORDERED: Propofol 10 MG/ML 20 ML BTL ONE (12:11)
[2023-12-26] MEDS: Buffered Lidocaine 1% SYRIN 1 ml INTRADERM ONE (14:38)
[2023-12-26 14:46] LABS: Hematocrit 26.1 % (38-53); Hemoglobin 8.6 g/dL (13.2-16.3)
[2023-12-26] MEDS: Multivitamins/Minerals TAB PO SCH (14:49)
[2023-12-26] MEDS: LORazepam 2 mg VIAL 1 ml IV PUSH SCH (15:43)
[2023-12-26] MEDS: Lactated Ringers 1000 ml BAG 1,000 ML IV SCH (15:44)
[2023-12-26] MEDS: Thiamine 100 MG/ML 2 ml VIAL (200 mg) IM ONE (15:45)
[2023-12-26 22:18] LABS: Hematocrit 23.8 % (38-53); Hemoglobin 7.6 g/dL (13.2-16.3)
[2023-12-26] MEDS: Pantoprazole VIAL 40 MG VIAL IV SCH (22:33)
[2023-12-26] MEDS ORDERED: LORazepam 2 mg VIAL 1 ml IV PUSH PRN (23:56)
[2023-12-27] MEDS ORDERED: LORazepam PO 0-6 for WAM protocol PO SCH (01:00)
[2023-12-27 06:15] LABS: ABS Lymphocytes 0.3 10^3/uL (1.0-4.8); ABS Monocytes 0.4 10^3/uL (0.0-1.1); Hematocrit 22.4 % (38-53); Hemoglobin 7.2 g/dL (13.2-16.3); Mean Corpuscular Volume 87.4 fL (80-97); Mean Platelet Volume 8.9 fL (7.5-11.2); Nucleated Red Blood Cells % 0.1 %/100WBC (0.0-0.8); Platelet Count 147 10^3/uL (150-450); Red Blood Count 2.56 10^6/uL (4.06-5.63); Red Cell Distribution Width 17.6 % (12-17); White Blood Count 4.6 10^3/uL (3.6-10.2)
[2023-12-27 06:32] LABS: Albumin 3.6 g/dL (3.2-5.2); Albumin/Globulin Ratio 1.2 (1-3); Calcium 8.5 mg/dL (8.6-10.3); Creatinine, Serum 1.66 mg/dL (0.67-1.17); Globulin 3.1 g/dL (2-4); Phosphorus 4.7 mg/dL (2.5-5.0); Potassium 4.7 mmol/L (3.5-5.0); Total Bilirubin 1.1 mg/dL (0.2-1.0); Total Protein 6.7 g/dL (6.4-8.9); eGFR CKD-EPI 41.9 (>60)
[2023-12-27] MEDS: Fluticasone NASAL SPRAY 50MCG 16 gm SPRAY BTL BOTH NARES SCH (10:52)
[2023-12-27 15:36] LABS: Hematocrit 24.2 % (38-53); Hemoglobin 7.9 g/dL (13.2-16.3)
[2023-12-28 06:20] LABS: ABS Eosinophils 0.1 10^3/uL (0.0-0.5); ABS Lymphocytes 0.6 10^3/uL (1.0-4.8); ABS Monocytes 0.5 10^3/uL (0.0-1.1); ABS Neutrophils 2.7 10^3/uL (1.5-7.6); Eosinophil % 1.3 %; Hematocrit 21.7 % (38-53); Lymphocyte % 15.8 %; Mean Corpuscular Hemoglobin 28.5 pg (27-33); Mean Corpuscular Hgb Conc 32.2 g/dL (31-36); Mean Corpuscular Volume 88.4 fL (80-97); Mean Platelet Volume 8.7 fL (7.5-11.2); Nucleated Red Blood Cells % 0.1 %/100WBC (0.0-0.8); Platelet Count 145 10^3/uL (150-450); Red Blood Count 2.46 10^6/uL (4.06-5.63); Red Cell Distribution Width 17.5 % (12-17); White Blood Count 3.9 10^3/uL (3.6-10.2)
[2023-12-28 06:48] LABS: Calcium 7.9 mg/dL (8.6-10.3); Creatinine, Serum 1.73 mg/dL (0.67-1.17); Magnesium 1.9 mg/dL (1.9-2.7); Phosphorus 4.5 mg/dL (2.5-5.0); Potassium 3.7 mmol/L (3.5-5.0); eGFR CKD-EPI 39.9 (>60)
[2023-12-28 09:41] LABS: Hematocrit 24.4 % (38-53); Hemoglobin 7.7 g/dL (13.2-16.3)
[2023-12-28] MEDS: Insulin GLARGINE 100 un/ml 10 ml VIAL SUBCUT ONE (10:09)
[2023-12-28] MEDS: Insulin GLARGINE 100 un/ml 10 ml VIAL SUBCUT SCH (21:57)
[2023-12-29 08:22] LABS: ABS Eosinophils 0.1 10^3/uL (0.0-0.5); ABS Lymphocytes 0.5 10^3/uL (1.0-4.8); ABS Monocytes 0.6 10^3/uL (0.0-1.1); ABS Neutrophils 2.5 10^3/uL (1.5-7.6); ABS Nucleated RBC 0.01 10^3/ul; Eosinophil % 2.1 %; Hematocrit 21.2 % (38-53); Lymphocyte % 13.3 %; Mean Corpuscular Hemoglobin 28.9 pg (27-33); Mean Corpuscular Hgb Conc 32.9 g/dL (31-36); Mean Corpuscular Volume 87.8 fL (80-97); Mean Platelet Volume 8.5 fL (7.5-11.2); Nucleated Red Blood Cells % 0.2 %/100WBC (0.0-0.8); Platelet Count 143 10^3/uL (150-450); Red Blood Count 2.42 10^6/uL (4.06-5.63); White Blood Count 3.6 10^3/uL (3.6-10.2)
[2023-12-29 09:08] LABS: Hematocrit 25.1 % (38-53); Hemoglobin 7.8 g/dL (13.2-16.3)
[2023-12-29 09:15] LABS: Creatinine, Serum 1.61 mg/dL (0.67-1.17); Magnesium 1.8 mg/dL (1.9-2.7); Potassium 3.6 mmol/L (3.5-5.0); eGFR CKD-EPI 43.5 (>60)
[2023-12-29 09:56] VITALS: BP 134/81
[2023-12-29] MEDS: Magnesium Sulfate 2 gm BAG 2 GM/50 ML BAG IVPB ONE (11:07)
== END 2023-12-29 15:45 | disposition home or self-care (01) | DRG 378 ==
LOC: EDHOLD 15:05 → ED 15:05 → MEDTELE 23:08 → SUATTDRO 12-26 09:00
PROVIDERS: ADMIT Internal Medicine; ATTEND Internal Medicine
PROC: O.GIEGD (2023-12-26 11:20)

== ENCOUNTER 2024-05-11 13:28 | Inpatient (IN) ==
[2024-05-11 14:18] LABS: Hemoglobin 9.4 g/dL (13.2-16.3); INR 1.54 (0.85-1.14); Mean Corpuscular Hemoglobin 20.8 pg (27-33); Mean Corpuscular Hgb Conc 29.3 g/dL (31-36); Mean Corpuscular Volume 71.2 fL (80-97); Mean Platelet Volume 7.9 fL (7.5-11.2); Platelet Count 272 10^3/uL (150-450); Red Cell Distribution Width 20.3 % (12-17); White Blood Count 8.1 10^3/uL (3.6-10.2)
[2024-05-11 14:42] LABS: Albumin 3.7 g/dL (3.5-5.7); Creatinine, Serum 1.74 mg/dL (0.67-1.17); Globulin 3.6 g/dL (2-4); Potassium 4.9 mmol/L (3.5-5.0); Total Protein 7.3 g/dL (6.4-8.9); eGFR CKD-EPI 39.6 (>60)
[2024-05-11 14:46] LABS: ABS Lymphocytes 0.4 10^3/uL (1.0-4.8); ABS Monocytes 0.8 10^3/uL (0.0-1.1); ABS Neutrophils 6.8 10^3/uL (1.5-7.6); ABS Nucleated RBC 0.03 10^3/ul; Anisocytosis 2+; Eosinophil % 0.4 %; Hypochromasia 2+; Lymphocyte % 4.9 %; Microcytosis 2+; Nucleated Red Blood Cells % 0.3 %/100WBC (0.0-0.8); Polychromasia 1+
[2024-05-11 15:42] LABS: High Sensitivity Troponin 1 Hr 11 pg/mL (<20)
[2024-05-11] MEDS: Furosemide 20 mg/2 ml IV VIAL IV SLOW PU ONE ×2 (17:25→20:34)
[2024-05-11 18:47] LABS: C Reactive Protein 117.02 mg/L (<8.01); Direct Bilirubin 0.6 mg/dL (0.03-0.18)
[2024-05-11 19:07] LABS: Ferritin 15.9 ng/mL (24-336)
[2024-05-11] MEDS ORDERED: Dextrose 50% Syringe 50 ml 25 GM/50 ML SYRINGE IV PUSH PRN ×2 (19:38→19:39)
[2024-05-11] MEDS ORDERED: Sulfur Hexaflouride MICROSPHR 25 MG VIAL IV PRN (20:07)
[2024-05-11] MEDS: Insulin GLARGINE 100 un/ml 10 ml VIAL SUBCUT SCH (20:55)
[2024-05-12] MEDS ORDERED: Albuterol/Ipratropium NEB.SOL (2.5/0.5 MG) 3 ML NEB.SOLN INH PRN (01:24)
[2024-05-12] MEDS ORDERED: Benzocaine/Menthol LOZ PO PRN (01:25)
[2024-05-12 06:37] LABS: ABS Lymphocytes 0.5 10^3/uL (1.0-4.8); ABS Monocytes 0.7 10^3/uL (0.0-1.1); ABS Neutrophils 4.7 10^3/uL (1.5-7.6); ABS Nucleated RBC 0.01 10^3/ul; Eosinophil % 0.7 %; Hematocrit 29.9 % (38-53); Hemoglobin 8.6 g/dL (13.2-16.3); Lymphocyte % 7.7 %; Mean Corpuscular Hemoglobin 20.5 pg (27-33); Mean Corpuscular Hgb Conc 28.9 g/dL (31-36); Mean Corpuscular Volume 71.1 fL (80-97); Mean Platelet Volume 7.8 fL (7.5-11.2); Nucleated Red Blood Cells % 0.2 %/100WBC (0.0-0.8); Platelet Count 206 10^3/uL (150-450); Red Blood Count 4.21 10^6/uL (4.06-5.63); Red Cell Distribution Width 20.2 % (12-17); White Blood Count 5.9 10^3/uL (3.6-10.2)
[2024-05-12 06:47] LABS: Albumin 3.3 g/dL (3.5-5.7); Calcium 8.6 mg/dL (8.6-10.3); Creatinine, Serum 1.91 mg/dL (0.67-1.17); Globulin 3.3 g/dL (2-4); HDL Cholesterol 23.7 mg/dL; Potassium 3.8 mmol/L (3.5-5.0); Total Bilirubin 1.3 mg/dL (0.2-1.0); Total Protein 6.6 g/dL (6.4-8.9); eGFR CKD-EPI 35.4 (>60)
[2024-05-12] MEDS: Ferric Gluconate IV 250 MG in NS 0.9% 250 ml 200 ML IVPB SCH (09:45)
[2024-05-12] MEDS: Bumetanide IV 0.25 MG/ML 4 ml VIAL (1 mg) IV SLOW PU STA (11:14)
[2024-05-12] MEDS: Empagliflozin 25 MG TAB PO SCH (12:20)
[2024-05-12 13:45] LABS: HIV 4th Generation Nonreactive (Nonreactive)
[2024-05-12 14:36] LABS: Calcium 8.5 mg/dL (8.6-10.3); Creatinine, Serum 1.78 mg/dL (0.67-1.17); Potassium 4.2 mmol/L (3.5-5.0); eGFR CKD-EPI 38.6 (>60)
[2024-05-12 14:53] LABS: Hepatitis C Antibody Reactive (Negative)
[2024-05-12] MEDS: Enoxaparin 40 MG/0.4 ML SYR SUBCUT SCH (21:59)
[2024-05-13 06:56] LABS: ABS Eosinophils 0.1 10^3/uL (0.0-0.5); ABS Lymphocytes 0.6 10^3/uL (1.0-4.8); ABS Monocytes 0.9 10^3/uL (0.0-1.1); ABS Neutrophils 5.7 10^3/uL (1.5-7.6); ABS Nucleated RBC 0.01 10^3/ul; Hematocrit 27.9 % (38-53); Hemoglobin 8.2 g/dL (13.2-16.3); Lymphocyte % 7.7 %; Mean Corpuscular Hemoglobin 20.9 pg (27-33); Mean Corpuscular Hgb Conc 29.5 g/dL (31-36); Mean Corpuscular Volume 70.7 fL (80-97); Mean Platelet Volume 8.1 fL (7.5-11.2); Nucleated Red Blood Cells % 0.1 %/100WBC (0.0-0.8); Platelet Count 211 10^3/uL (150-450); Red Blood Count 3.95 10^6/uL (4.06-5.63); Red Cell Distribution Width 20.2 % (12-17); White Blood Count 7.2 10^3/uL (3.6-10.2)
[2024-05-13 07:05] LABS: Calcium 8.4 mg/dL (8.6-10.3); Creatinine, Serum 1.53 mg/dL (0.67-1.17); Magnesium 1.8 mg/dL (1.9-2.7); Phosphorus 3.4 mg/dL (2.5-5.0); Potassium 3.8 mmol/L (3.5-5.0); eGFR CKD-EPI 46.2 (>60)
[2024-05-13] MEDS: Potassium Chlor 20 meq TAB.ER PO ONE (09:07)
[2024-05-13] MEDS: Bumetanide IV 0.25 MG/ML 4 ml VIAL (1 mg) IV SLOW PU STA (09:07)
[2024-05-13 12:09] LABS: Albumin 3.3 g/dL (3.5-5.7); Albumin/Globulin Ratio 1.1 (1-3); Direct Bilirubin 0.5 mg/dL (0.03-0.18); Globulin 3.1 g/dL (2-4); Indirect Bilirubin 0.9 mg/dL (0.3-1.0); Total Bilirubin 1.4 mg/dL (0.2-1.0); Total Protein 6.4 g/dL (6.4-8.9)
[2024-05-13 14:54] LABS: Calcium 8.8 mg/dL (8.6-10.3); Creatinine, Serum 1.62 mg/dL (0.67-1.17); Magnesium 1.8 mg/dL (1.9-2.7); Potassium 4.2 mmol/L (3.5-5.0); eGFR CKD-EPI 43.2 (>60)
[2024-05-13] MEDS: Magnesium Sulfate IV 1GM/100ML 1 GM/100 ML BAG IV ONE (15:30)
[2024-05-13 16:38] LABS: Fungitell Qualitative Result Negative (Negative); Fungitell Quantitative Value <31 pg/mL (<60 pg/mL)
[2024-05-14 11:30] LABS: Calcium 8.2 mg/dL (8.6-10.3); Creatinine, Serum 1.41 mg/dL (0.67-1.17); Potassium 4.1 mmol/L (3.5-5.0)
[2024-05-14] MEDS: Bumetanide IV 0.25 MG/ML 4 ml VIAL (1 mg) IV SLOW PU SCH (12:29)
[2024-05-14 14:37] LABS: Aspergillus (Galactomannan) Ag <0.500 index (<0.5)
[2024-05-15 07:52] LABS: Calcium 8.4 mg/dL (8.6-10.3); Creatinine, Serum 1.44 mg/dL (0.67-1.17); Potassium 3.6 mmol/L (3.5-5.0); eGFR CKD-EPI 49.7 (>60)
[2024-05-15 08:14] LABS: Hematocrit 28.7 % (38-53); Hemoglobin 8.5 g/dL (13.2-16.3); Mean Corpuscular Hgb Conc 29.7 g/dL (31-36); Mean Corpuscular Volume 70.8 fL (80-97); Mean Platelet Volume 7.6 fL (7.5-11.2); Platelet Count 228 10^3/uL (150-450); Red Blood Count 4.05 10^6/uL (4.06-5.63); Red Cell Distribution Width 20.5 % (12-17); White Blood Count 9.5 10^3/uL (3.6-10.2)
[2024-05-16 07:02] LABS: Calcium 8.6 mg/dL (8.6-10.3); Creatinine, Serum 1.4 mg/dL (0.67-1.17); Magnesium 1.9 mg/dL (1.9-2.7); Potassium 3.5 mmol/L (3.5-5.0); eGFR CKD-EPI 51.4 (>60)
[2024-05-17 08:38] LABS: Calcium 8.4 mg/dL (8.6-10.3); Creatinine, Serum 1.31 mg/dL (0.67-1.17); Magnesium 1.9 mg/dL (1.9-2.7); Potassium 3.9 mmol/L (3.5-5.0); eGFR CKD-EPI 55.7 (>60)
[2024-05-17 13:36] VITALS: BP 133/77
== END 2024-05-17 16:10 | disposition home or self-care (01) | DRG 291 ==
LOC: EDHOLD 13:28 → ED 13:28 → SUATTDRO 18:48 → MED 21:55
PROVIDERS: ADMIT Student in an Organized Health Care Education/Training Program; ATTEND Hospitalist